=== PATIENT | male | born 1930 | race Caucasian/White ===

== ENCOUNTER 2019-03-17 07:56 | Day surgery (SDC) | payer OTHER ==
[2019-03-17] VITALS (11 sets, daily range): BP systolic 116–150; BP diastolic 48–81; PULSE 51–68; TEMP 97.6–98.4
[~2019-03-17] VITALS: Ht 175.3 cm; Wt 79.1 kg
[~2019-03-17 07:56] MED LIST: B-12 500 MCG PO; FLOMAX 0.40.4 MG/CAP PO; K-DUR 10 MEQ T10 MEQ; NATURAL E400 IU PO; PRESERVISION1 SGL PO; PRILOSEC 20MG20 MG PO; TROSPIUM CHLORI20 MG PO; TYLENOL 500MG500 MG PO; VITAMIN C500 MG PO; VITAMIN D1000 IU PO; ZOLOFT 50MG50 MG PO
[2019-03-17] MEDS ORDERED: FORTAMET500 M1 PO (09:10)
[2019-03-17] MEDS ORDERED: ERGOCALCIFER50000 IU PO (09:14)
[2019-03-17] MEDS ORDERED: VITAMIN E1000 U/CAP PO (09:14)
[2019-03-17] MEDS ORDERED: CASODEX 50MG TA50 MG PO (09:16)
--- NOTE | 2019-03-18 02:53 | NUR ---
Patient continues to have CBI running at a slow rate. Urine pink. Patient denies any pain. Patient has rested well throughout the night. Denies any needs. Will continue to monitor.
[2019-03-18 04:43] VITALS: BP 122/56; PULSE 6; TEMP 98.1
--- NOTE | 2019-03-18 06:28 | NUR ---
CBI clamped per orders.
[2019-03-18 07:47] VITALS: BP 127/57; PULSE 84; TEMP 98.7
--- NOTE | 2019-03-18 08:35 | NUR ---
Mehta catheter prime and pull completed per Drs order.
--- NOTE | 2019-03-18 09:00 | NUR ---
Patient alert and oriented, answers questions appropraitely. See assessment. No c/o urinary frequency, burning or hesitancy. No c/o at this time.
--- NOTE | 2019-03-18 09:28 | NUR ---
SW met with the patient to discuss discharge plan. The patient lives in [place] with his , Ester. He reports independence with ADLs and has a cane and walker. The patient's PCP is Dr. Hector Torrez and he receives his medications from the ID in [place]. He reports no difficulties obtaining his meds. The patient does not have advanced directives in EMR, but he states that he does have them completed and at home. He states that his is his DPOA-HC. The patient plans to return home with his upon discharge. No additional needs at this time.
--- NOTE | 2019-03-18 10:34 | NUR ---
Initial visit; Patient thanked Child Nutrition Manager for looking in on him and wishing him well and God's blessings.
[2019-03-18 12:15] VITALS: BP 142/78; PULSE 71; TEMP 98.4
--- NOTE | 2019-03-18 13:05 | NUR ---
Discharge instructions reviewed with patient and spouse, verbalized understanding. Discharged via wheelchair to auto/home with spouse at 1305.
== END 2019-03-18 13:05 | disposition home or self-care (01) ==
LOC: SDCO 07:56 → SURG 12:48 → SDCO 03-18 13:05
DX: C61 Malignant neoplasm of prostate (principal); N40.1 Benign prostatic hyperplasia with lower urinary tract symptoms; N39.41 Urge incontinence; R35.0 Frequency of micturition; R39.12 Poor urinary stream; K22.70 Barrett's esophagus without dysplasia; K21.9 Gastro-esophageal reflux disease without esophagitis; E11.42 Type 2 diabetes mellitus with diabetic polyneuropathy; E11.39 Type 2 diabetes mellitus with other diabetic ophthalmic complication; H42 Glaucoma in diseases classified elsewhere; Z86.010 Personal history of colon polyps; N41.9 Inflammatory disease of prostate, unspecified; Z90.49 Acquired absence of other specified parts of digestive tract; Z79.84 Long term (current) use of oral hypoglycemic drugs; Z88.8 Allergy status to other drugs, medicaments and biological substances; Z87.891 Personal history of nicotine dependence; Z82.5 Family history of asthma and other chronic lower respiratory diseases
CPT/HCPCS: OP; J0690; J2250; J2370; J2405; J2704; J7030; J7120